=== PATIENT | male | born 1975 | race Caucasian/White ===

== ENCOUNTER 2023-08-29 20:14 | Emergency (ER) | payer OTHER, SELFPAY ==
[2023-08-29 20:40] VITALS: BP 127/71; PULSE 67; RESP 16; TEMP 36.5; O2SAT 95
--- NOTE | 2023-08-29 21:28 | ED.WOUNDLAC ---
HPI - Wound/Laceration General Chief Complaint: Wound/Laceration Stated Complaint: LIP LACERATION Time Seen by Provider: 08/29/23 21:27 History of Present Illness HPI narrative: Patient is a healthy 48-year-old male here with a lip laceration. He states around 6:00 p.m. today a piece of wood fell down from the ceiling and hit the left side of his mouth. He states that he had immediate pain and some significant bleeding both on the outside and inside of his mouth. He believes that his tooth may have gone through his lip. He notes that the bleeding has significantly subsided after applying pressure and an ice cube to the area. He denies any dental pain, teeth at feel out of place, jaw pain, difficulty moving his jaw. He did not fall to the ground, he did not lose consciousness. No additional injuries appreciated. He is unsure of when his last tetanus shot was. Review of Systems Review of Systems: All systems reviewed & are unremarkable except as noted in HPI and below [facility] Family History Family History (Updated 01/01/11 @ 14:48 by DOCTOR UNKNOWN) Other Diabetes mellitus Family history of coronary artery disease Social History Social History Smoking status: Never smoker Alcohol intake: never Exam Narrative: GENERAL: Well-appearing, well-nourished, and in no acute distress. HEAD: Normocephalic, atraumatic. EYES: PERRLA and EOMI. No dental injuries. Patient has a 1 cm laceration to the anterior aspect of his left upper lip, bleeding controlled, does not appear to be a through and through injury. He additionally has a 3 mm abrasion to the left upper lip, bleeding controlled. Does not appear to be a puncture wound. ENT: Nares clear. Mucous membranes moist. NECK: Supple. CHEST: Clear to auscultation. No respiratory distress. HEART: Regular rate and rhythm. Normal peripheral pulses. ABDOMEN: Soft, nontender, nondistended. EXTREMITIES: Normal range of motion. No edema. SKIN: Warm, dry, no rash. NEURO: No focal deficits. Alert and oriented x3. PSYCH: Normal mood and affect. Course Course Emergency Course: Chart review performed. Patient here with lip laceration after getting hit in the face with a piece of wood at work. Triage vitals normal. Patient seen evaluated, nontoxic appearing, he has a laceration to the anterior aspect of his lip as well as a superficial abrasion to the outside of his left upper lip. On exam does not appear to be a through and through injury. He does not appear to have any dental trauma. Do not believe that any imaging or laceration repair is indicated at this time. Advise good wound hygiene, to minimize hard foods to avoid pieces of chips or crackers getting lodged in the wound. Advised salt water rinses after eating. Monitor for signs of infection. Will update his tetanus here. The results of pertinent diagnostic studies and exam findings were discussed. The patient?s provisional diagnosis and plan of care were discussed with the patient and present family. The patient and/or present family expressed understanding of the diagnosis and plan. The nurse was instructed to provide written instructions and appropriate follow-up information. The patient understands their need and responsibility to obtain additional follow-up as instructed. The risks of medications administered and prescribed were discussed with the patient and family present. Vital Signs Vital signs: Vital Signs Temperature 97.7 F 08/29/23 20:40 Pulse Rate 67 08/29/23 20:40 Respiratory Rate 16 08/29/23 20:40 Blood Pressure 127/71 08/29/23 20:40 Pulse Oximetry 95 08/29/23 20:40 Oxygen Delivery Room Air 08/29/23 20:40 Temperature 97.7 F 08/29/23 20:40 Pulse Rate 67 08/29/23 20:40 Respiratory Rate 16 08/29/23 20:40 Blood Pressure 127/71 08/29/23 20:40 Pulse Oximetry 95 08/29/23 20:40 Oxygen Delivery Room Air 08/29/23 20:40 Discharge Plan Discharge Clinical Impression
[2023-08-29] MEDS: TETANUS,DIPHTHERIA,AC PERTUSSIS ADULT (0.5 ML) BOOSTRIX IM (21:43)
== END 2023-08-29 22:07 | disposition home or self-care (01) ==
PROVIDERS: Emergency Provider Student in an Organized Health Care Education/Training Program; PCP Emergency Medicine
DX: S01.511A Laceration without foreign body of lip, initial encounter (principal); W22.8XXA Striking against or struck by other objects, initial encounter; Z23 Encounter for immunization
CPT/HCPCS: 90471; 90715; 99282